=== PATIENT | male | born 1950 | race African-American/Black ===

== ENCOUNTER 2024-04-28 06:22 | Inpatient (IN) | payer MEDICARE, MEDICAID ==
[2024-04-28] MEDS ORDERED: Azithromycin 500 MG VIAL ONE (06:37)
[2024-04-28] MEDS ORDERED: Sodium Chloride 0.9% 100 ML ONE (06:37)
[2024-04-28] MEDS ORDERED: cefTRIAXone (ROCEPHIN) 2 GM VIAL ONE (06:37)
[2024-04-28] MEDS ORDERED: Magnesium 2 GM/50 ML BAG (IN WATER) ONE (06:38)
[2024-04-28] MEDS ORDERED: Albuterol 2.5 MG (3 mL) NEB ONE (06:40)
[2024-04-28 06:56] LABS: Actual Bicarbonate (HCO3v) 21.9 mEq/L (22-28); Analyzer IN Cardio ER; Calcium, Ionized (venous) 1.16 mmol/L (1.16-1.32); Chloride (VBG) 103 mmol/L (98-106); Hematocrit-VBG 34 % (42.0-52.0); Hemoglobin (Hb) 11.6 g/dL (12.6-17.4); Potassium (VBG) 3.49 mmol/L (3.70-5.30); Sodium 137 mmol/L (133-146); pH (venous) 7.323 (7.32-7.43)
[2024-04-28 07:02] LABS: #Basophils 0.03 10x3/uL (0.0-0.2); #Eosinophils Less than 0.03 10x3/uL (0.0-0.7); %Basophils 0.2 % (0.0-1.0); %Lymphocytes 16.4 % (21.0-51.0); %Monocytes 16.3 % (0.0-10.0); %Neutrophils 66.2 % (42.0-75.0); Hematocrit 31.8 % (42.0-52.0); Hemoglobin 10.3 g/dL (14.0-18.0); Mean Corpuscular HGB CONC 32.4 g/dL (32.0-36.0); Mean Corpuscular Hemoglobin 28.1 pg (27.0-31.0); Mean Corpuscular Volume 86.6 fL (78.0-98.0); Mean Platelet Volume 11.3 fL (7.4-10.4); Platelet Count 237 10x3/uL (130-400); RBC Distribution Width 12.7 % (11.5-14.5); Red Blood Cell (RBC) Count 3.67 mill/uL (4.70-6.10)
[2024-04-28 07:22] LABS: Troponin I 0.153 ng/mL (< 0.028)
[2024-04-28 07:29] LABS: Calcium 8.6 mg/dL (7.8-10.44); Chloride 104 mmol/L (98-107); Potassium 3.8 mmol/L (3.5-5.1); Sodium 136 mmol/L (136-145)
[2024-04-28 07:30] LABS: Globulin 4.6 g/dL (2.4-3.5); Glucose 162 mg/dL (83-110); Protein, Total 7.6 g/dL (5.8-8.1)
[2024-04-28] MEDS ORDERED: Aspirin Chewable 81 MG TAB ONE (07:30)
[2024-04-28 07:31] LABS: Anion Gap 18 mmol/L (10-20); Carbon Dioxide 18 mmol/L (23-31)
[2024-04-28 07:33] LABS: Alkaline Phosphatase 66 U/L (40-110); Bilirubin, Total 2.1 mg/dL (0.3-1.2)
[2024-04-28 07:34] LABS: BUN (Urea Nitrogen) 22 mg/dL (8.4-25.7); Calc. Creatinine Clearance 0 mL/min (70-130); Estimated GFR 67
[2024-04-28 07:36] LABS: ALT (SGPT) 15 U/L (Less than 45); AST (SGOT) 46 U/L (11-34)
[2024-04-28] MEDS ORDERED: Acetaminophen 325 MG TAB PO PRN (08:18)
[2024-04-28] MEDS ORDERED: Ipratropium/Albuterol 3 ML NEB NEB PRN (08:18)
[2024-04-28] MEDS ORDERED: traMADol HCl 50 MG TAB PO PRN ×2 (08:18)
[2024-04-28] MEDS ORDERED: Ondansetron ODT 4 MG TAB PO PRN (08:18)
[2024-04-28] MEDS ORDERED: Ondansetron PF 4 MG/2 ML Vial IVP PRN (08:18)
[2024-04-28] MEDS ORDERED: Enoxaparin 40 MG (0.4 mL) SYRINGE ONE (08:56)
[2024-04-28] MEDS ORDERED: Famotidine 20 MG TAB ONE (08:56)
[2024-04-28] MEDS ORDERED: Ipratropium/Albuterol 3 ML NEB ONE ×2 (09:29→14:20)
[2024-04-28] MEDS: Enoxaparin 40 MG (0.4 mL) SYRINGE SC SCH (09:56)
[2024-04-28] MEDS: Famotidine 20 MG TAB PO SCH (09:56)
[2024-04-28] MEDS ORDERED: methylPREDNISolone Sod Succ 40 MG VIAL ONE (12:42)
[2024-04-28] MEDS: methylPREDNISolone Sod Succ 40 MG VIAL IVP SCH (12:55)
[2024-04-28 13:15] LABS: Troponin I 0.103 ng/mL (< 0.028)
[2024-04-28] MEDS ORDERED: Iopamidol 370 76% 100 ML VIAL ONE (13:49)
[2024-04-28] MEDS: Ipratropium/Albuterol 3 ML NEB NEB SCH (14:22)
[2024-04-28 15:40] VITALS: BMI 23.3
[2024-04-28] MEDS: Amlodipine 10 MG TAB PO SCH (17:36)
[2024-04-28] MEDS: Losartan 25 MG TAB PO SCH (17:36)
[2024-04-28 18:44] LABS: Troponin I 0.062 ng/mL (< 0.028)
[2024-04-29 05:07] LABS: #Basophils 0.03 10x3/uL (0.0-0.2); #Eosinophils Less than 0.03 10x3/uL (0.0-0.7); %Basophils 0.2 % (0.0-1.0); %Lymphocytes 8.1 % (21.0-51.0); %Monocytes 5.7 % (0.0-10.0); %Neutrophils 84.7 % (42.0-75.0); Hematocrit 30.7 % (42.0-52.0); Hemoglobin 9.8 g/dL (14.0-18.0); Mean Corpuscular HGB CONC 31.9 g/dL (32.0-36.0); Mean Corpuscular Hemoglobin 28.2 pg (27.0-31.0); Mean Corpuscular Volume 88.2 fL (78.0-98.0); Mean Platelet Volume 11.1 fL (7.4-10.4); Platelet Count 271 10x3/uL (130-400); RBC Distribution Width 12.8 % (11.5-14.5); Red Blood Cell (RBC) Count 3.48 mill/uL (4.70-6.10)
[2024-04-29 05:29] LABS: Anion Gap 14 mmol/L (10-20); BUN (Urea Nitrogen) 16 mg/dL (8.4-25.7); Calc. Creatinine Clearance 86 mL/min (70-130); Calcium 9.3 mg/dL (7.8-10.44); Carbon Dioxide 23 mmol/L (23-31); Chloride 108 mmol/L (98-107); Estimated GFR 96; Glucose 144 mg/dL (83-110); Potassium 4.4 mmol/L (3.5-5.1); Sodium 141 mmol/L (136-145)
[2024-04-29] MEDS: Losartan 25 MG TAB PO SCH (08:51)
[2024-04-29] MEDS: Amlodipine 10 MG TAB PO SCH (08:52)
[2024-04-29] MEDS: HYDROcodone/Acetaminophen 10/325 mg Tablet PO PRN (08:52)
[2024-04-29] MEDS: Azithromycin 500 MG in Sodium Chloride 0.9% 250 ML 250 ML IVPB SCH (08:53)
[2024-04-29] MEDS: cefTRIAXone\\ROCEPHIN 2 GM in Sodium Chloride 0.9% 100 ML IVPB SCH (08:55)
[2024-04-29] MEDS: Mometasone 100 MCG/Formoterol 5 MCG 120 PUFF INHALER INH SCH ×2 (10:21→19:17)
[2024-04-29] MEDS ORDERED: Iopamidol 370 76% 100 ML VIAL ONE (14:47)
[2024-04-30] MEDS: HYDROcodone/Acetaminophen 5/325 mg Tablet PO PRN (05:54)
[2024-04-30] MEDS: FLU (Fluad Triv) TS24-25 (65UP)/MF59C/PF 45 MCG/0.5 ML Syringe IM ONE (08:44)
[2024-04-30] MEDS: Guaifenesin DM 100-10/5 ML UDCUP PO PRN (09:37)
[2024-04-30] MEDS: guaiFENesin ER 600 MG TAB PO SCH ×2 (14:14→20:58)
[2024-05-01 05:33] LABS: Hematocrit 29.9 % (42.0-52.0); Hemoglobin 9.6 g/dL (14.0-18.0); Mean Corpuscular HGB CONC 32.1 g/dL (32.0-36.0); Mean Corpuscular Hemoglobin 28.2 pg (27.0-31.0); Mean Corpuscular Volume 87.9 fL (78.0-98.0); Platelet Count 382 10x3/uL (130-400); RBC Distribution Width 12.8 % (11.5-14.5)
[2024-05-01 06:06] LABS: Anion Gap 13 mmol/L (10-20); BUN (Urea Nitrogen) 20 mg/dL (8.4-25.7); Calc. Creatinine Clearance 91 mL/min (70-130); Calcium 9.1 mg/dL (7.8-10.44); Carbon Dioxide 27 mmol/L (23-31); Chloride 102 mmol/L (98-107); Estimated GFR 98; Glucose 122 mg/dL (83-110); Potassium 3.9 mmol/L (3.5-5.1); Sodium 138 mmol/L (136-145)
[2024-05-01] MEDS: Carvedilol 6.25 MG TAB PO SCH (08:25)
[2024-05-01] MEDS: predniSONE 20 MG TAB PO SCH (08:27)
[2024-05-01 12:46] VITALS: BP 166/86; TEMP 97.8
[2024-05-01] MEDS ORDERED: Carvedilol 6.25 MG TAB PO SCH (17:00)
== END 2024-05-01 13:20 | disposition home or self-care (01) | DRG 193 ==
LOC: SUATTDRO 06:22 → ERS 06:22 → ERHOLD 08:10 → 2NO 15:28
PROVIDERS: ADMIT Family Medicine; ATTEND Internal Medicine
DX: J18.9 Pneumonia, unspecified organism (principal); I21.A1 Myocardial infarction type 2; J96.01 Acute respiratory failure with hypoxia; J44.1 Chronic obstructive pulmonary disease with (acute) exacerbation; I10 Essential (primary) hypertension; F17.210 Nicotine dependence, cigarettes, uncomplicated; Z98.890 Other specified postprocedural states; D63.8 Anemia in other chronic diseases classified elsewhere; Z79.899 Other long term (current) drug therapy
CPT/HCPCS: 36415; 71045; 71275; 74178; 80048; 80053; 82805; 83605; 83880; 84484; 85025; 85027; 85379; 87040; 87428; 93005; 93306; 94640; 94644; 94660; J0456; J0696; J1650; J2919; J3475; J7050; J7512; J7611; J7620; Q9967

== ENCOUNTER 2025-01-27 02:59 | Observation (INO) | payer MEDICARE, MEDICAID ==
[2025-01-27 03:29] LABS: #Basophils 0.06 10x3/uL (0.0-0.2); #Eosinophils 0.15 10x3/uL (0.0-0.7); #Monocytes 0.63 10x3/uL (0.11-0.59); #Neutrophils 4.11 10x3/uL (1.40-6.50); %Basophils 0.9 % (0.0-1.0); %Eosinophils 2.2 % (0.0-10.0); %Lymphocytes 25.6 % (21.0-51.0); %Monocytes 9.4 % (0.0-10.0); %Neutrophils 61.8 % (42.0-75.0); Hematocrit 38.3 % (42.0-52.0); Hemoglobin 12.0 g/dL (14.0-18.0); Mean Corpuscular Hemoglobin 27.9 pg (27.0-31.0); Mean Corpuscular Volume 89.1 fL (78.0-98.0); Platelet Count 233 10x3/uL (130-400); Red Blood Cell (RBC) Count 4.30 mill/uL (4.70-6.10); White Blood Cell (WBC) Count 6.67 10x3/uL (4.8-10.8)
[2025-01-27 04:47] LABS: ALT (SGPT) Less than 7 U/L (Less than 45); AST (SGOT) 17 U/L (11-34); Albumin 4.1 g/dL (3.1-4.5); Alkaline Phosphatase 73 U/L (40-110); Anion Gap 13 mmol/L (10-20); BUN (Urea Nitrogen) 9 mg/dL (8.4-25.7); Bilirubin, Total 1.3 mg/dL (0.3-1.2); Calc. Creatinine Clearance 0 mL/min (70-130); Calcium 9.1 mg/dL (7.8-10.44); Carbon Dioxide 27 mmol/L (23-31); Chloride 104 mmol/L (98-107); Globulin 2.9 g/dL (2.4-3.5); Glucose 103 mg/dL (83-110); Lipase 12 U/L (8-78); Potassium 3.6 mmol/L (3.5-5.1); Sodium 140 mmol/L (136-145)
[2025-01-27] MEDS ORDERED: Nitroglycerin 0.4 MG TAB (25 Tab Bottle) SL PRN (07:23)
[2025-01-27] MEDS ORDERED: Acetaminophen 325 MG TAB PO PRN (07:23)
[2025-01-27] MEDS: Aspirin Chewable 81 MG TAB PO SCH (09:35)
[2025-01-27] MEDS: Losartan 25 MG TAB PO SCH (09:35)
[2025-01-27] MEDS: Famotidine 20 MG TAB PO SCH (09:35)
[2025-01-27] MEDS: Enoxaparin 40 MG (0.4 mL) SYRINGE SC SCH (09:36)
[2025-01-27] MEDS: HYDROcodone/Acetaminophen 10/325 mg Tablet PO PRN ×2 (09:36→15:40)
[2025-01-27 10:00] VITALS: BMI 22.8
[2025-01-27] MEDS: Ketorolac Tromethamine 30 MG (1 mL) VIAL IVP PRN (10:56)
[2025-01-27] MEDS: Carvedilol 6.25 MG TAB PO SCH (14:04)
[2025-01-28 04:47] LABS: #Basophils 0.07 10x3/uL (0.0-0.2); #Eosinophils 0.31 10x3/uL (0.0-0.7); #Monocytes 0.87 10x3/uL (0.11-0.59); #Neutrophils 1.76 10x3/uL (1.40-6.50); %Basophils 1.3 % (0.0-1.0); %Eosinophils 5.6 % (0.0-10.0); %Lymphocytes 45.8 % (21.0-51.0); %Monocytes 15.6 % (0.0-10.0); %Neutrophils 31.5 % (42.0-75.0); Hematocrit 37.2 % (42.0-52.0); Hemoglobin 12.1 g/dL (14.0-18.0); Mean Corpuscular Hemoglobin 28.3 pg (27.0-31.0); Mean Corpuscular Volume 86.9 fL (78.0-98.0); Platelet Count 231 10x3/uL (130-400); Red Blood Cell (RBC) Count 4.28 mill/uL (4.70-6.10); White Blood Cell (WBC) Count 5.57 10x3/uL (4.8-10.8)
[2025-01-28 05:12] LABS: Anion Gap 15 mmol/L (10-20); BUN (Urea Nitrogen) 21 mg/dL (8.4-25.7); Calc. Creatinine Clearance 53 mL/min (70-130); Calcium 9.1 mg/dL (7.8-10.44); Carbon Dioxide 24 mmol/L (23-31); Cardiac Risk 3.1 (Less than 4.5); Chloride 105 mmol/L (98-107); Cholesterol 99 mg/dl (< 200 Desired); Glucose 98 mg/dL (83-110); HDL Cholesterol 32 mg/dL (>60 Neg Risk); LDL Cholesterol, Calculated 52 mg/dL; Potassium 3.8 mmol/L (3.5-5.1); Sodium 140 mmol/L (136-145); Triglycerides 77 mg/dL (Less than 150)
[2025-01-28 15:41] VITALS: BP 176/82; TEMP 97.6
== END 2025-01-28 17:25 | disposition home or self-care (01) ==
LOC: ERS 02:59 → ERHOLD 06:34 → OBS 09:08
PROVIDERS: ADMIT Internal Medicine; ATTEND Hospitalist
DX: M79.602 Pain in left arm (principal); M79.601 Pain in right arm; R07.9 Chest pain, unspecified; I10 Essential (primary) hypertension; M06.9 Rheumatoid arthritis, unspecified; Z79.82 Long term (current) use of aspirin; Z79.899 Other long term (current) drug therapy
CPT/HCPCS: 36415; 71045; 78452; 80048; 80053; 80061; 83690; 83880; 84484; 85025; 85379; 93005; 93017; 94760; 96372; 96375; 96376; A9502; G0378; J1650; J1885; J2272; J2785